=== PATIENT | male | born 1975 | race Caucasian/White ===

== ENCOUNTER 2017-06-29 06:42 | Emergency (ER) | payer BC, OTHER ==
[~2017-06-29] VITALS: Ht 175.3 cm; Wt 97.5 kg
[2017-06-29 06:44] VITALS: Ht 175.3 cm; Wt 97.5 kg
[2017-06-29] MEDS ORDERED: LIDOCAINE 2% VISC 15 ML CUP PO ONE (07:00)
--- NOTE | 2017-06-29 07:01 | ERD ---
ER Documentation Chief Complaint Date/Time DATE: 06/29/17 TIME: 07:00 Chief Complaint intermittent left ear pain x this am thinks it's a bug HPI This is a 41-year-old male presents to the ER stating that he feels like he has a bug in his left ear. Patient states that this occurred this morning. Patient can feel the bug moving in his ear and this creates a sharp pain that is intermittent. He denies any hearing loss. Has not had any cough or cold symptoms. He is asymptomatic otherwise. ROS 12 point review of systems was done, all negative except per HPI. Allergies Allergies: Coded Allergies: No Known Allergy (Unverified , 06/29/17) Physical Exam Vitals Vital Signs Date Time Temp Pulse Resp B/P Pulse Ox O2 Delivery O2 Flow Rate FiO2 06/29/17 06:44 97.9 87 18 143/90 100 Physical Exam GENERAL: The patient is well-developed, well-nourished, in no acute distress. HEENT: Atraumatic. There is a cockroach in the left ear. RESPIRATORY: Clear to auscultation bilaterally. There are no rales, wheezes or rhonchi. HEART: Regular rate and rhythm. No murmurs, clicks, rubs or gallops. NEUROLOGIC: Alert and oriented. SKIN: There is no rash. The skin is warm and dry. Results 24 hrs Current Medications Medications (Trade) Dose Ordered Sig/Kiah Route PRN Reason Start Time Stop Time Status Last Admin Dose Admin Lidocaine (Xylocaine (Viscous)) 15 ml ONCE ONCE PO 06/29/17 07:00 06/29/17 07:01 DC Procedures/MDM This is a 41-year-old male presents to the ER with a cockroach in his left ear. Viscous lidocaine was applied to the left ear, and Tomas successfully removed with alligator forceps. Tolerated procedure well. Lavage was also attempted, however tomas was removed with alligator forceps. Needs to follow-up with his primary care doctor within 1-2 days return to ER sooner if symptoms worsen. My medical decision making shared with the patient he understands and agrees with plan. Departure Diagnosis: Primary Impression: Foreign body Condition: Stable MARIE HAGAN Jun 29, 2017 07:01
== END 2017-06-29 07:46 | disposition home or self-care (01) ==
LOC: FTE 06:42
DX: T16.2XXA Foreign body in left ear, initial encounter (principal); X58.XXXA Exposure to other specified factors, initial encounter; Y92.9 Unspecified place or not applicable

== ENCOUNTER 2017-10-06 09:36 | Emergency (ER) | END 2017-10-06 12:10 | disposition home or self-care (01) ==

== ENCOUNTER 2017-10-12 04:51 | Emergency (ER) | END 2017-10-12 07:50 | disposition home or self-care (01) ==